=== PATIENT | female | born 2000 | race Asian ===

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

== ENCOUNTER 2022-01-06 11:00 | Outpatient (CLI) | payer OTHER | END 2022-01-06 18:58 | disposition home or self-care (01) | LOC: LABW 11:00 | PROVIDERS: ATTEND Nurse Practitioner Family | DX: L83 Acanthosis nigricans (principal) | CPT/HCPCS: 36415; 82947; 83036; 83525; 84681 ==